=== PATIENT | male | born 1960 | race Caucasian/White ===

== ENCOUNTER 2017-06-10 10:56 | Emergency (ER) | payer SELFPAY ==
[~2017-06-10] VITALS: Ht 188 cm; Wt 82.0 kg
[2017-06-10 10:58] VITALS: BP 176/112; PULSE 85; RESP 15; TEMP 98.2; O2SAT 95
--- NOTE | 2017-06-10 11:28 | PD ---
HPI Chief Complaint: Lump, Cyst, Hernia Time Seen by Provider: 11:02 Travel History International Travel<30 days: No Contact w/Intl Traveler<30days: No Traveled to known affect area: No History of Present Illness HPI Patient is a 56-year-old male who presents emergency Department with complaint of groin pain. 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 He felt a burning sensation and since has been feeling a swelling, lump in that area when he stands. He states that this extends into the scrotum. When he lays in bed at night he is able to push it back in. He has not had any difficulties with bowel, bladder functions , nausea vomiting. [facility] Past Medical History Anxiety: Yes Hypertension: Yes Inguinal Hernia: Yes (currently) Social History Alcohol Use: Yes (daily) Tobacco Use: Yes Substance Use: No Allergies-Medications (Allergen,Severity, Reaction): Coded Allergies: No Known Allergies (Unverified , 06/10/17) Reported Meds & Prescriptions Reported Meds & Active Scripts Active No Active Prescriptions or Reported Medications Review of Systems Except as stated in HPI: all other systems reviewed are Neg Physical Exam Narrative GENERAL: Well-appearing male in no acute distress SKIN: Focused skin assessment warm/dry. HEAD: Normocephalic. EYES: No scleral icterus. No injection or drainage. ENT: Mucous membranes pink and moist. CARDIOVASCULAR: Regular rate and rhythm. RESPIRATORY: No accessory muscle use. GASTROINTESTINAL: Abdomen soft, non-tender, nondistended. Periumbilical hernia easily reducible. Large right inguinal hernia extending down into the scrotum easily reducible MUSCULOSKELETAL: Normal gait NEUROLOGICAL: Awake and alert. Normal speech. PSYCHIATRIC: Appropriate mood and affect; insight and judgment normal. Data Data Last Documented VS Vital Signs Date Time Temp Pulse Resp B/P Pulse Ox O2 Delivery O2 Flow Rate FiO2 06/10/17 11:06 18 06/10/17 10:58 98.2 85 176/112 95 MDM Medical Decision Making Medical Screen Exam Complete: Yes Emergency Medical Condition: Yes Medical Record Reviewed: Yes Differential Diagnosis 56-year-old male here with right groin pain. Obvious large right inguinal hernia on exam as well as small umbilical hernia. No evidence of incarceration , strangulation. Narrative Course Patient given outpatient referral for general surgery. Also given information for patient assistance in [facility] as he is uninsured. Diagnosis Primary Impression: Right inguinal hernia Additional Impression: Umbilical hernia Qualified Code: K42.9 - Umbilical hernia without obstruction and without gangrene Referrals: Alex Jurado MD call for appointment Gen. surgeon [facility] call for appointment [facility] call for appointment Patient Assistance Program call for appointment Additional Instructions: Tylenol, ibuprofen, Aleve as needed for pain. Follow-up with general surgeon as discussed for hernia repair. Consider wearing a jockstrap to assist with comfort. Med/Other Pt SpecificInfo: No Change to Meds Scripts No Active Prescriptions or Reported Meds Disposition: 01 DISCHARGE HOME Condition: Stable Rubi Morgan MD Jun 10, 2017 11:28
== END 2017-06-10 12:16 | disposition home or self-care (01) ==
LOC: NEPD 10:56
DX: K40.90 Unilateral inguinal hernia, without obstruction or gangrene, not specified as recurrent (principal); K42.9 Umbilical hernia without obstruction or gangrene; F41.9 Anxiety disorder, unspecified; F10.10 Alcohol abuse, uncomplicated; F17.290 Nicotine dependence, other tobacco product, uncomplicated
CPT/HCPCS: 99282

== ENCOUNTER 2017-06-14 11:18 | Observation (INO) | payer SELFPAY ==
[2017-06-14] VITALS (12 sets, daily range): BP systolic 118–196; BP diastolic 75–121; PULSE 67–88; RESP 14–20; TEMP 97.8–99.2; O2SAT 96–100
[~2017-06-14] VITALS: Ht 177.8 cm; Wt 82.0 kg
--- NOTE | 2017-06-14 11:27 | PD ---
HPI . diffuse abdominal pain Chief Complaint: diffuse abdominal pain Time Seen by Provider: 11:20 Travel History International Travel<30 days: No Contact w/Intl Traveler<30days: No Traveled to known affect area: No History of Present Illness HPI 56-year-old male here with complaints of diffuse abdominal pain. Patient was recently seen a few days ago and diagnosed with a right inguinal hernia. Patient was given a mandatory outpatient referral to general surgery, but tells me that he does not have insurance and is running into some obstacles. He says that every morning he experiences nauseousness, some vomiting and diffuse abdominal pain. This morning he was trying to make a bowel movement around 5 AM and passed some small pellets and tells me that his pain intensified to 8/ 10. He is now complaining of pain in all quadrants. He also reports that there is a bulging mass in his testicle that he can push back into his abdomen. Patient also tells me that he is experiencing a heavy pressure in his chest. He says he feels as though something is sitting on him, with associated shortness of breath. He denies any diaphoresis. Unfortunately he does not have a primary care provider. His blood pressure is elevated and he is not on medications. He has no other complaints at this time. [facility] Past Medical History Anxiety: Yes Hypertension: Yes Inguinal Hernia: Yes (currently) Social History Alcohol Use: Yes (daily) Tobacco Use: Yes Substance Use: No Allergies-Medications (Allergen,Severity, Reaction): Coded Allergies: No Known Allergies (Unverified , 06/14/17) Reported Meds & Prescriptions Reported Meds & Active Scripts Active No Active Prescriptions or Reported Medications Review of Systems General / Constitutional: No: Fever Eyes: No: Visual changes HENT: No: Headaches Cardiovascular: Positive: Chest Pain or Discomfort Respiratory: No: Shortness of Breath Gastrointestinal: Positive: Abdominal Pain (diffuse abdominal pain ) Genitourinary: No: Dysuria Musculoskeletal: No: Pain Skin: No Rash Neurologic: No: Weakness Psychiatric: No: Depression Endocrine: No: Polydipsia Hematologic/Lymphatic: No: Easy Bruising Physical Exam Narrative GENERAL: AAO x 3, no acute distress, Well-nourished, well-developed patient. SKIN: Warm and dry. No visible rashes or bruising. HEAD: Normocephalic and atraumatic. EYES: No scleral icterus. No injection or drainage. ENT: No nasal drainage noted. Mucous membranes pink. Airway patent. Moist mucous membranes NECK: Supple, trachea midline. No JVD. CARDIOVASCULAR: Regular rate and rhythm without murmurs, gallops, or rubs. RESPIRATORY: Breath sounds equal bilaterally. No accessory muscle use. No rhonchi or rales. GASTROINTESTINAL: Abdomen soft, diffuse tenderness with deep palpation, right inguinal hernia present that is reducible, no signs of strangulation EXTREMITIES: No cyanosis or edema. BACK: No obvious deformity. NEURO: CN II-12 intact, collar padder blindstitch strength normal b/l, UE and LE 5/5, no focal deficits PSYCH: AAO x 3, normal affect. Data Data Last Documented VS Vital Signs Date Time Temp Pulse Resp B/P Pulse Ox O2 Delivery O2 Flow Rate FiO2 06/14/17 11:53 79 18 196/121 100 Room Air 06/14/17 11:26 98.5 Orders Ondansetron Odt (Zofran Odt) (06/14/17 11:30) Electrocardiogram (06/14/17 11:29) Basic Metabolic Panel (Bmp) (06/14/17 11:29) Ckmb (Isoenzyme) Profile (06/14/17 11:29) Complete Blood Count With Diff (06/14/17 11:29) Magnesium (Mg) (06/14/17 11:29) Prothrombin Time / Inr (Pt) (06/14/17 11:29) Act Partial Throm Time (Ptt) (06/14/17 11:29) Troponin I (06/14/17 11:29) Chest, Single Ap (06/14/17 11:29) Ecg Monitoring (06/14/17 11:29) Bilateral Bp Monitoring (06/14/17 11:29) Iv Access Insert/Monitor (06/14/17 11:29) Oximetry (06/14/17 11:29) Oxygen Administration (06/14/17 11:29) Sodium Chloride 0.9% Flush (Ns Flush) (06/14/17 11:30) Admit Order (Ed Use Only) (06/14/17 12:32) Labs Laboratory Tests Test 06/14/17 11:35 White Blood Count 6.2 TH/MM3 Red Blood Count 4.38 MIL/MM3 Hemoglobin 14.7 GM/DL Hematocrit 43.0 % Mean Corpuscular Volume 98.3 FL Mean Corpuscular Hemoglobin 33.5 PG Mean Corpuscular Hemoglobin 34.1 % Concent Red Cell Distribution Width 13.2 % Platelet Count 243 TH/MM3 Mean Platelet Volume 7.6 FL Neutrophils (%) (Auto) 55.8 % Lymphocytes (%) (Auto) 27.4 % Monocytes (%) (Auto) 14.0 % Eosinophils (%) (Auto) 1.8 % Basophils (%) (Auto) 1.0 % Neutrophils # (Auto) 3.5 TH/MM3 Lymphocytes # (Auto) 1.7 TH/MM3 Monocytes # (Auto) 0.9 TH/MM3 Eosinophils # (Auto) 0.1 TH/MM3 Basophils # (Auto) 0.1 TH/MM3 CBC Comment DIFF FINAL Differential Comment Prothrombin Time 10.8 SEC Prothromb Time International 1.0 RATIO Ratio Activated Partial 24.8 SEC Thromboplast Time Sodium Level 137 MEQ/L Potassium Level 4.1 MEQ/L Chloride Level 105 MEQ/L Carbon Dioxide Level 24.3 MEQ/L Anion Gap 8 MEQ/L Blood Urea Nitrogen 8 MG/DL Creatinine 0.79 MG/DL Estimat Glomerular Filtration 102 ML/MIN Rate Random Glucose 79 MG/DL Calcium Level 9.1 MG/DL Magnesium Level 2.1 MG/DL Total Creatine Kinase 69 U/L Troponin I LESS THAN 0.02 NG/ML MDM Medical Decision Making Medical Screen Exam Complete: Yes Emergency Medical Condition: Yes Medical Record Reviewed: Yes Differential Diagnosis Right inguinal hernia, atypical chest pain, ACS, uncontrolled hypertension Narrative Course 56-year-old male here with complaints of abdominal pain and right inguinal hernia. On further discussion, patient reports that he is having intermittent chest pain that he describes as a heavy pressure in his chest. He does complain of some associated shortness of breath. IV access and continuous cardiac monitoring started. Zofran for nausea. Labs, imaging and EKG have been ordered. I have discussed with patient that his hernia is reducible, and he will need follow-up with the general surgeon on an outpatient basis. I explained to him that he does have a mandatory outpatient referral. Last Impressions Chest X-Ray 06/14/17 1129 Signed Impressions: Service Date/Time: May 11:37 - CONCLUSION: No acute disease. Primo Saini MD Laboratory Tests Test 06/14/17 11:35 White Blood Count 6.2 TH/MM3 Red Blood Count 4.38 MIL/MM3 Hemoglobin 14.7 GM/DL Hematocrit 43.0 % Mean Corpuscular Volume 98.3 FL Mean Corpuscular Hemoglobin 33.5 PG Mean Corpuscular Hemoglobin 34.1 % Concent Red Cell Distribution Width 13.2 % Platelet Count 243 TH/MM3 Mean Platelet Volume 7.6 FL Neutrophils (%) (Auto) 55.8 % Lymphocytes (%) (Auto) 27.4 % Monocytes (%) (Auto) 14.0 % Eosinophils (%) (Auto) 1.8 % Basophils (%) (Auto) 1.0 % Neutrophils # (Auto) 3.5 TH/MM3 Lymphocytes # (Auto) 1.7 TH/MM3 Monocytes # (Auto) 0.9 TH/MM3 Eosinophils # (Auto) 0.1 TH/MM3 Basophils # (Auto) 0.1 TH/MM3 CBC Comment DIFF FINAL Differential Comment Prothrombin Time 10.8 SEC Prothromb Time International 1.0 RATIO Ratio Activated Partial 24.8 SEC Thromboplast Time Sodium Level 137 MEQ/L Potassium Level 4.1 MEQ/L Chloride Level 105 MEQ/L Carbon Dioxide Level 24.3 MEQ/L Anion Gap 8 MEQ/L Blood Urea Nitrogen 8 MG/DL Creatinine 0.79 MG/DL Estimat Glomerular Filtration 102 ML/MIN Rate Random Glucose 79 MG/DL Calcium Level 9.1 MG/DL Magnesium Level 2.1 MG/DL Total Creatine Kinase 69 U/L Troponin I LESS THAN 0.02 NG/ML I discussed all of the preliminary results with the patient. I explained to him that I recommend observe patient overnight in the chest pain center. I explained to him that this is not an admission for his hernia and that he will need to have this followed on outpatient basis. I reiterated to him that there is a mandatory outpatient referral already in place, and that someone will contact him regarding this. Patient was in agreement for admission regarding his chest pain. Patient's bp was elevated. We provided nitroglycerin here in the ED. He is also hypertensive and would benefit from some medications upon discharge. Case was discussed with my attending Dr. Wolf. Patient verbalized understanding of instructions, questions were answered, and thanked me for their care. Diagnosis Primary Impression: Chest pain Qualified Code: R07.9 - Chest pain, unspecified type Admitting Information Admitting Physician Requests: Admit Scripts No Active Prescriptions or Reported Meds Condition: Stable Sarah Alicia Jun 14, 2017 11:27
[2017-06-14] MEDS ORDERED: ONDANSETRON ODT 4 MG TAB PO ONE (11:30)
[2017-06-14] MEDS ORDERED: SODIUM CHLORIDE 0.9% FLUSH 10 ML FLUSH IVF PRN (11:30)
--- NOTE | 2017-06-14 11:54 | RADRPT ---
EXAM DATE/TIME: 06/14/2017 11:37 [facility] COMPARISON: No previous studies available for comparison. INDICATIONS : Chest pressure. MEDICAL HISTORY : None. SURGICAL HISTORY : None. ENCOUNTER: Initial ACUITY: 2 days PAIN SCORE: 1/10 LOCATION: Bilateral chest FINDINGS: A single view of the chest demonstrates the lungs to be symmetrically aerated without evidence of mas s, infiltrate or effusion. The cardiomediastinal contours are unremarkable. Osseous structures are intact. CONCLUSION: No acute disease. Primo Saini MD on June 14, 2017 at 11:52 Board Certified Radiologist. This report was verified electronically.
[2017-06-14 12:08] LABS: AUTOMATED NEUTROPHIL # 3.5 TH/MM3 (1.8-7.7); BASOPHIL # 0.1 TH/MM3 (0-0.2); EOSINOPHIL # 0.1 TH/MM3 (0-0.4); EOSINOPHIL % 1.8 % (0.0-4.0); HEMO FLAGS DIFF FINAL; LYMPH % 27.4 % (9.0-44.0); LYMPHOCYTE # 1.7 TH/MM3 (1.0-4.8); MEAN CELL VOLUME 98.3 FL (80.0-100.0); MEAN CORPUSCULAR HEMOGLOBIN 33.5 PG (27.0-34.0); MEAN CORPUSCULAR HGB CONC 34.1 % (32.0-36.0); NEUT % 55.8 % (16.0-70.0); PLATELET COUNT 243 TH/MM3 (150-450); RED BLOOD COUNT 4.38 MIL/MM3 (4.50-5.90); RED CELL DISTRIBUTION WIDTH 13.2 % (11.6-17.2); WHITE BLOOD COUNT 6.2 TH/MM3 (4.0-11.0)
[2017-06-14 12:16] LABS: APTT (PATIENT) 24.8 SEC (24.3-30.1); PROTHROMBIN TIME - PATIENT 10.8 SEC (9.8-11.6)
[2017-06-14 12:21] LABS: ANION GAP 8 MEQ/L (5-15); BICARBONATE 24.3 MEQ/L (21.0-32.0); BLOOD UREA NITROGEN 8 MG/DL (7-18); CHLORIDE 105 MEQ/L (98-107); GLOMERULAR FILTRATION RATE 102 ML/MIN (>89); MAGNESIUM 2.1 MG/DL (1.5-2.5); POTASSIUM 4.1 MEQ/L (3.5-5.1); SODIUM (NA) 137 MEQ/L (136-145)
[2017-06-14 12:27] LABS: CREATINE KINASE 69 U/L (39-308)
[2017-06-14] MEDS ORDERED: NITROGLYCERIN 2% OINT 1 GM PACKET TOPICAL ONE (12:45)
[2017-06-14] MEDS ORDERED: NITROGLYCERIN 0.4 MG SL 25 TABS/BTL SL ONE (12:45)
[2017-06-14] MEDS ORDERED: SODIUM CHLORIDE 0.9% FLUSH 5 ML FLUSH IVF PRN (13:15)
[2017-06-14] MEDS ORDERED: ACETAMINOPHEN 500 MG CPLT PO PRN (13:15)
[2017-06-14] MEDS ORDERED: cloNIDine HCL 0.1 MG TAB PO PRN (13:15)
[2017-06-14] MEDS ORDERED: ACETAMINOPHEN/HYDROcodone 325 MG/7.5 MG TAB PO PRN (13:15)
[2017-06-14] MEDS ORDERED: ONDANSETRON HCL 4 MG/2 ML VIAL IV PRN (13:15)
[2017-06-14] MEDS: LISINOPRIL 10 MG TAB PO SCH (13:51)
[2017-06-14] MEDS: PANTOPRAZOLE SOD 40 MG DELAYED RELEASE TAB PO SCH (13:51)
--- NOTE | 2017-06-14 15:24 | HHI.HP ---
HPI Primary Care Physician No Primary Care Physician Chief Complaint Chest pain History of Present Illness This is a 56-year-old male that presents to ED with a complaint of a tightness in his chest that began about midnight last night. He states it is still there. It is in the center of his chest. He times short of breath with her. However he states he doesn't chronic shortness of breath but it seemed to be a little worse. He was nauseous but states has not unusual. States that he has an episode of emesis almost on a daily basis in the morning. He to reside to his umbilical hernia and right inguinal hernia that he states he is waiting for referral to be repaired. He still has bowel movements on a daily basis. Denies blood in stool. He's found nothing to worsen the chest discomfort. Nothing to help it. Believes he had a stress test about 10 years ago and that was okay. Review of Systems General: Patient denies fevers, chills recent, and recent travel HEENT: Patient denies headache, sore throat, difficulty swallowing. Cardiovascular: Has the chest discomfort as mentioned above. Denies sensation of heart beating rapidly or irregularly. No syncope. Denies diaphoresis. Respiratory: He has chronic shortness of breath but believes it has been a little worse since last night. Denies inspirational chest discomfort. Denies coughing wheezing or hemoptysis. GI: He has been nauseated for some time. He has emesis almost a daily basis in the morning. That has been going on for almost a year. He complained of chronic abdominal pain and a true set to having an umbilical hernia and a right inguinal hernia that he is awaiting referral to have repaired. Recently seen in the ED and a mandatory consult was requested. Musculoskeletal: Patient denies joint pain or edema. Denies calf pain or edema. Neurovascular: Patient denies numbness, tingling, weakness in extremities. Denies headache. Endocrine: Denies polyuria and polydipsia. Hematologic: Denies easy bruising. Skin: Denies rash or itching. Past Family Social History Allergies: Coded Allergies: No Known Allergies (Unverified , 06/14/17) Past Medical History Hypertension but states that he has never been treated. Really not sure of his lipid status. He admits to tobacco abuse. Denies diabetes and known CAD. History of umbilical hernia and right inguinal hernia that he is awaiting referral for repair. Past Surgical History Noncontributory. Reported Medications Reported Meds & Active Scripts Active No Active Prescriptions or Reported Medications Active Ordered Medications Current Medications Medications (Trade) Dose Ordered Sig/Pepe Route Start Time Stop Time Status Last Admin (NS Flush) 2 ml UNSCH PRN IVF 06/14/17 13:15 (NS Flush) 2 ml BID IVF 06/14/17 21:00 (Tylenol) 500 mg Q4H PRN PO 06/14/17 13:15 (Lucinda 7.5-325 Mg) 1 tab Q4H PRN PO 06/14/17 13:15 (Zofran Inj) 4 mg Q6H PRN IV 06/14/17 13:15 (Aspirin) 325 mg DAILY PO 06/15/17 09:00 (Catapres) 0.1 mg Q4H PRN PO 06/14/17 13:15 (Protonix) 40 mg DAILY PO 06/14/17 13:15 06/14/17 13:51 (Prinivil) 10 mg DAILY PO 06/14/17 13:15 06/14/17 13:51 Family History He states that his mother of a myocardial infarction in her 60s. Social History Patient smokes one pack of cigarettes daily and has done so for approximately 35 years. Denies alcohol or illicit drugs. Physical Exam Vital Signs Vital Signs Date Time Temp Pulse Resp B/P Pulse Ox O2 Delivery O2 Flow Rate FiO2 06/14/17 14:42 99.2 69 14 146/87 97 06/14/17 14:14 88 18 163/97 100 Room Air 06/14/17 13:52 74 18 170/102 99 Room Air 06/14/17 11:53 79 18 196/121 100 Room Air 06/14/17 11:52 18 06/14/17 11:51 18 100 Room Air 06/14/17 11:51 100 Room Air 06/14/17 11:26 98.5 88 20 184/113 100 Physical Exam GENERAL: This is a well-nourished, well-developed patient, in no apparent distress. Patient speaks in clear complete sentences. Patient is pleasant. HEENT: Head is atraumatic and normocephalic. Neck is supple without lymphadenopathy and trachea is midline. No JVD or carotid bruits. CARDIOVASCULAR: Regular rate and rhythm without murmurs, gallops, or rubs. RESPIRATORY: Expiratory wheezes in the bases. Breath sounds equal bilaterally. No rales or rhonchi. Chest wall is tender. No use of accessory muscles. GASTROINTESTINAL: There is generalized abdominal tenderness palpating. Abdomen is nondistended. There is a reducible umbilical hernia and inguinal hernia. Abdomen soft. No obvious pulsatile mass or bruit. No CVA tenderness. Strong femoral pulses bilaterally. Normal bowel sounds in all quadrants. MUSCULOSKELETAL: Patient is moving upper and lower extremities freely. No calf tenderness or edema, no Homans sign. Strong pulses in upper and lower extremities. NEUROLOGICAL: Patient is alert and oriented. Cranial nerves 2-12 are grossly intact. No focal deficits and speech is clear. SKIN: No rash and turgor is normal. Laboratory Laboratory Tests Test 06/14/17 11:35 White Blood Count 6.2 Red Blood Count 4.38 Hemoglobin 14.7 Hematocrit 43.0 Mean Corpuscular Volume 98.3 Mean Corpuscular Hemoglobin 33.5 Mean Corpuscular Hemoglobin 34.1 Concent Red Cell Distribution Width 13.2 Platelet Count 243 Mean Platelet Volume 7.6 Neutrophils (%) (Auto) 55.8 Lymphocytes (%) (Auto) 27.4 Monocytes (%) (Auto) 14.0 Eosinophils (%) (Auto) 1.8 Basophils (%) (Auto) 1.0 Neutrophils # (Auto) 3.5 Lymphocytes # (Auto) 1.7 Monocytes # (Auto) 0.9 Eosinophils # (Auto) 0.1 Basophils # (Auto) 0.1 CBC Comment DIFF FINAL Differential Comment Prothrombin Time 10.8 Prothromb Time International 1.0 Ratio Activated Partial 24.8 Thromboplast Time Sodium Level 137 Potassium Level 4.1 Chloride Level 105 Carbon Dioxide Level 24.3 Anion Gap 8 Blood Urea Nitrogen 8 Creatinine 0.79 Estimat Glomerular Filtration 102 Rate Random Glucose 79 Calcium Level 9.1 Magnesium Level 2.1 Total Creatine Kinase 69 Troponin I LESS THAN 0.02 Result Diagram: 06/14/17 1135 06/14/17 1135 Assessment and Plan Assessment and Plan * Chest pain: Patient will continue to have serial cardiac enzymes and EKGs for ruling out purposes. He will be evaluated by Dr. Cline cardiology in the chest pain center and likely undergo a Lexiscan in the morning if he rules out. He will be discharged home if the stress test was nonischemic with instructions to follow-up with PCP. * Hypertension: We'll start lisinopril. Have Catapres when necessary. Continue to monitor. * Inguinal and umbilical hernia: Patient is awaiting referral that was requested as a mandatory consult through the ED recently. * Tobacco abuse: Patient has been counseled on the importance of smoking cessation. Patient is stable at this time. He is agreeable to this plan. Jose Farias Jun 14, 2017 15:24
[2017-06-14 15:47] LABS: CREATINE KINASE 60 U/L (39-308)
[2017-06-14] MEDS ORDERED: RESP: ALBUTEROL 2.5 MG/IPRATROPIUM 0.5 MG NEB (PRN) INH (16:45)
--- NOTE | 2017-06-14 17:28 | EKG ---
Date Performed: 06/14/2017 Time Performed: 14:34:48 PTAGE: 56 years EKG: Sinus rhythm POSSIBLE LEFT ATRIAL ENLARGEMENT INCOMPLETE RIGHT BUNDLE BRANCH BLOCK BORDERLINE ECG Since PREVIOUS TRACING , no significant change noted PREVIOUS TRACIN06/14/2017 13.09 DOCTOR: Domitila Cline Interpretating Date/Time 06/14/2017 17:26:52
--- NOTE | 2017-06-14 17:29 | EKG ---
Date Performed: 06/14/2017 Time Performed: 13:09:42 PTAGE: 56 years EKG: Sinus rhythm POSSIBLE LEFT ATRIAL ENLARGEMENT INCOMPLETE RIGHT BUNDLE BRANCH BLOCK BORDERLINE ECG Since PREVIOUS TRACING , no significant change noted PREVIOUS TRACIN07/02/2001 14.34 DOCTOR: Domitila Cline Interpretating Date/Time 06/14/2017 17:27:16
[2017-06-14 18:16] LABS: CREATINE KINASE 58 U/L (39-308)
[2017-06-14] MEDS: SODIUM CHLORIDE 0.9% FLUSH 5 ML FLUSH IVF SCH (21:00)
[2017-06-15 00:02] VITALS: PULSE 68
[2017-06-15 03:05] VITALS: BP 138/94; PULSE 69; RESP 18; TEMP 97.5; O2SAT 98
[2017-06-15 04:11] VITALS: PULSE 64
[2017-06-15 07:27] VITALS: BP 144/87; PULSE 79; RESP 14; TEMP 97.8; O2SAT 96
[2017-06-15] MEDS: PANTOPRAZOLE SOD 40 MG DELAYED RELEASE TAB PO SCH (07:35)
[2017-06-15] MEDS: LISINOPRIL 10 MG TAB PO SCH (07:35)
[2017-06-15] MEDS: SODIUM CHLORIDE 0.9% FLUSH 5 ML FLUSH IVF SCH (07:35)
[2017-06-15 08:00] VITALS: PULSE 63
[2017-06-15] MEDS ORDERED: ASPIRIN 325 MG TAB PO SCH (09:00)
[2017-06-15] MEDS ORDERED: REGADENOSON INJ 0.4 MG/5 ML SYR ONE (10:05)
[2017-06-15 11:41] VITALS: BP 145/89; PULSE 70; RESP 16; TEMP 98.2; O2SAT 99
--- NOTE | 2017-06-15 13:32 | RADRPT ---
EXAM DATE/TIME: 06/15/2017 09:22 [facility] COMPARISON: No previous studies available for comparison. INDICATIONS : Center chest pain and tightness. Angina. DOSE: 25.8 mCi Tc99m Myoview at stress. 8.1 mCi Tc99m Myoview at rest. 0.4 mg Lexiscan STRESS SYMPTOMS: None noted. EJECTION FRACTION: 52% MEDICAL HISTORY : Hypertension. Smoker. SURGICAL HISTORY : Inguinal hernia repair. ENCOUNTER: Initial ACUITY: 1 day PAIN SCALE: 3/10 LOCATION: Midsternal chest TECHNIQUE: The patient underwent pharmacologic stress with infusion of prescribed dose. Continuous ECG tracing was monitored during stress. Gated SPECT imaging was performed after stress and conventional SPECT i maging was performed at rest. The examination was performed on a SPECT/CT scanner, both attenuation and non-corrected datasets were reviewed. FINDINGS: DISTRIBUTION: The maximum perfused segment at stress is in the inferior wall. PERFUSION STUDY: The pattern of perfusion at stress is within normal limits. GATED STUDY: There is intact wall motion and thickening without hypokinetic or dyskinetic segments. CONCLUSION: 1. No reversible perfusion defect. 2. No focal wall motion abnormality with reduced EF of 52%. RISK CATEGORY: Low (<1% Annual Mortality Rate) Jarett De Oliveira MD on June 15, 2017 at 13:26 Board Certified Radiologist. This report was verified electronically.
[2017-06-15] MEDS ORDERED: LISI10TA3 PO (14:02)
--- NOTE | 2017-06-15 14:02 | HHI.DCPOC ---
Discharge Care Plan Diagnosis: (1) Atypical chest pain (2) Hypertension (3) Inguinal hernia Goals to Promote Your Health * To prevent worsening of your condition and complications * To maintain your health at the optimal level Directions to Meet Your Goals Take your medications as prescribed Follow your dietary instruction Follow activity as directed Keep your appointments as scheduled Take your immunizations and boosters as scheduled If your symptoms worsen call your PCP, if no PCP go to Urgent Care Center or Emergency Room Smoking is Dangerous to Your Health. Avoid second hand smoke Call the 24-hour hour crisis hotline for domestic abuse at [facility] Jun 15, 2017 14:02
--- NOTE | 2017-06-15 16:10 | TR ---
Date Performed: 06/15/2017 Time Performed: 10:03:51 DOCTOR: Domitila Cline DRUG LIST: CLINICAL HISTORY: ANGINA REASON FOR TEST: Angina REASON FOR ENDING: OBSERVATION: CONCLUSION: Lexiscan stress test was performed under standard four minute protocol. Radionuclid e was injected one minute prior to ending the test. No electrocardiographic abormalities were present to suggest ischemia. Nuclear imaging and interpretation are pending. COMMENTS:
--- NOTE | 2017-06-15 16:19 | EKG ---
Date Performed: 06/14/2017 Time Performed: 17:45:03 PTAGE: 56 years EKG: Sinus rhythm RSR' Since PREVIOUS TRACING , no significant change noted PREVIOUS TRACIN06/14/2017 14.34 DOCTOR: Domitila Cline Interpretating Date/Time 06/15/2017 16:19:32
== END 2017-06-15 15:40 | disposition home or self-care (01) ==
LOC: NEPC 11:18 → NEDA 12:35 → NEPFCDU 14:53
PROVIDERS: ADMIT Internal Medicine Interventional Cardiology; ATTEND Internal Medicine Interventional Cardiology
DX: R07.89 Other chest pain (principal); I10 Essential (primary) hypertension; K40.90 Unilateral inguinal hernia, without obstruction or gangrene, not specified as recurrent; K42.9 Umbilical hernia without obstruction or gangrene; R06.02 Shortness of breath; R11.2 Nausea with vomiting, unspecified; R10.84 Generalized abdominal pain; G89.29 Other chronic pain; I20.9 Angina pectoris, unspecified; F41.9 Anxiety disorder, unspecified; F17.210 Nicotine dependence, cigarettes, uncomplicated; I45.10 Unspecified right bundle-branch block
CPT/HCPCS: 71010; 78452; 80048; 82550; 83735; 84484; 85025; 85610; 85730; 93005; 93017; 99285; A9502; G0378; J2785